=== PATIENT | female | born 1940 | race African-American/Black ===

== ENCOUNTER 2025-01-29 14:25 | Emergency (ER) | payer OTHER, MEDICAID ==
[~2025-01-29] VITALS: Ht 167.6 cm; Wt 90.0 kg
[2025-01-29 14:30] VITALS: TEMP 37.1; O2SAT 97
[2025-01-29] MEDS: ACETAMINOPHEN 325MG TABLET PO SCH (16:37)
[2025-01-29 19:52] VITALS: BP 134/57; PULSE 65; RESP 20; O2SAT 99
== END 2025-01-29 20:00 | disposition home or self-care (01) ==
LOC: ER 14:25
DX: S22.080A Wedge compression fracture of T11-T12 vertebra, initial encounter for closed fracture (principal); M25.551 Pain in right hip; W19.XXXA Unspecified fall, initial encounter; Y93.89 Activity, other specified; Y92.89 Other specified places as the place of occurrence of the external cause; Y99.8 Other external cause status
CPT/HCPCS: 72170; 73552; 73560; 74176; 99284